=== PATIENT | female | born 1980 | race Two or more races ===

== ENCOUNTER 2024-12-03 20:10 | Inpatient (IN) | payer MEDICARE, MEDICAID ==
[~2024-12-03] VITALS: Ht 149.9 cm; Wt 97.0 kg
[2024-12-03 20:59] LABS: Basophils # (auto) 0.1 10 ^3/uL (0-0.2); Basophils % (auto) 1.1 % (0.0-2.0); Eosinophils # (auto) 0.1 10 ^3/uL (0-0.8); Eosinophils % (auto) 1.3 % (0.0-7.0); Hematocrit 40.9 % (36.0-46.0); Hemoglobin 13.8 g/dL (12.2-16.2); Lymphocytes # (auto) 1.8 10 ^3/uL (0.4-5.4); Lymphocytes % (auto) 27.8 % (10.0-50.0); Mean Corpuscular Hemoglobin 28.4 pg (28.0-32.0); Mean Corpuscular Hgb Conc. 33.7 g/dL (32.0-36.0); Mean Corpuscular Volume 84.2 fL (80.0-100.0); Monocytes # (auto) 0.4 10 ^3/uL (0-1.3); Monocytes % (auto) 6.8 % (0.0-12.0); Neutrophils # (auto) 4.1 10 ^3/uL (1.6-8.6); Nucleated Red Blood Cells % 0.1 %; Platelet Count (auto) 256 10^3/uL (140-450); Red Blood Cells 4.85 10^6/uL (4.0-5.20); Red Cell Distribution Width 16.2 % (11.8-14.3); White Blood Cell 6.5 10^3/uL (4.4-10.8)
[2024-12-03 21:03] LABS: Urine Bacteria FEW /hpf (None Seen); Urine Blood Negative /uL (Negative); Urine Clarity Turbid (Clear); Urine Color Yellow (Yellow); Urine Mucus MODERATE (None Seen); Urine Protein, UAD 1+ (Negative); Urine Specific Gravity 1.035 (1.001-1.035); Urine Squamous Epithelial Cell FEW /hpf (<5); Urine Urobilinogen 4 mg/dL (Negative); Urine WBC 27 /HPF (0-5)
[2024-12-03 21:05] LABS: Chloride 104 mmol/L (98-107); Potassium 3.9 mmol/L (3.5-5.1); Sodium 142 mmol/L (136-145)
[2024-12-03 21:06] LABS: Anion Gap 10 (5-15); Carbon Dioxide 28 mmol/L (20-31)
[2024-12-03 21:12] LABS: BUN/Creatinine Ratio 14.8 (10.0-20.0); Blood Urea Nitrogen 13 mg/dL (9-23); Glucose 118 mg/dL (74-106)
[2024-12-03 21:16] LABS: Lactic Acid w/Reflex 2.2 mmol/L (0.4-2.0)
--- NOTE | 2024-12-03 21:37 | ED.PDOC ---
General HPI Comments 44-year-old female here today with complaints of left lower quadrant ab dominal/pelvic pain that started this morning. Patient states the symptoms are intermittent can come in waves. Patient also endorses a small amount of vaginal bleeding which she says is not atypical for her as her periods has been intermittent. No dysuria or hematuria. States the pain goes from a 3/10 to a 10/10 very quickly and then subsides again. Endorses nausea without vomiting. No fevers. No rashes. No trauma. No history of the same. Chief Complaint: Pelvic Pain Time Seen by MD: 20:27 Primary Care Provider: DR ROLON Allergies: Coded Allergies: NO KNOWN ALLERGIES (Unverified , 12/03/24) Information Source: Patient Mode of Arrival: Ambulatory All Other Systems: Reviewed and Negative (ROS negative except as indicated by HPI) Physical Exam General Appearance: No Apparent Distress, Normal HEENT: Normal ENT Inspection, Pharynx Normal, TMs Normal Neck: Full Range of Motion, Non-Tender, Normal, Normal Inspection Respiratory: Chest Non-Tender, Lungs Clear, No Accessory Muscle Use, No Respiratory Distress, Normal Breath Sounds Cardiovascular: No Edema, No Murmur, No Gallop, Normal Peripheral Pulses, Regular Rate/Rhythm Breast Exam: Deferred Gastrointestinal: No Organomegaly, No Pulsatile Mass, Normal Bowel Sounds, Soft, Other (Mild tenderness to palpation in the left lower quadrant, no CVAT bilaterally, no rashes nor any signs of trauma) Genitalia: Deferred Pelvic: Deferred Rectal: Deferred Extremities: No calf tenderness, Normal capillary refill, Normal inspection, Normal range of motion, Non-tender, No pedal edema Musculoskeletal : Apperance: Normal Neurologic: Alert, gaggerman II-XII nml as Tested, No Motor Deficits, Normal Affect, Normal Mood, No Sensory Deficits Cerebellar Function: Normal Reflexes: Normal Skin: Dry, Normal Color, Warm Lymphatic: No Adenopathy Was a procedure done? Was a procedure done?: No Differential Diagnosis Kidney stone (Female): Appendicitis, Bowel obstruction, Ectopic , Ovarian torsion, Pancreatitis, Pyelonephritis, Urinary obstruction, Urolithiasis X-Ray, Labs, Meds, VS Vital Signs Date Time Temp Pulse Resp B/P (MAP) Pulse Ox O2 Delivery O2 Flow Rate FiO2 12/03/24 23:33 89 18 97 Room Air* 0 21 12/03/24 22:36 98.7 85 18 149/72 (97) 98 98.7 12/03/24 22:36 85 18 98 Room Air 12/03/24 20:37 98.1 83 20 127/90 (102) 96 98.1 Lab Test 12/03/24 22:42 12/03/24 20:57 12/03/24 20:49 Range/Units Lactic Acid Level 2.0 2.2 *H 0.4-2.0 mmol/L Urine Color Yellow Yellow Urine Clarity Turbid H Clear Urine pH 6.0 5.0-9.0 Urine Specific [place] 1.035 1.001-1.035 Urine Protein 1+ H Negative Urine Ketones Trace Negative Urine Blood Negative Negative /uL Urine Nitrite Negative Negative Urine Bilirubin Negative Negative Urine Urobilinogen 4 H Negative mg/dL Urine Leukocyte Esterase 3+ Negative /uL Urine RBC 12 0 - 4 /hpf Urine Microscopic WBC 27 H 0-5 /HPF Urine Squamous Epithelial Cells Few <5 /hpf Urine Calcium Oxalate Crystals Many None Seen Urine Bacteria Few H None Seen /hpf Urine Mucus Moderate None Seen Urine Glucose Normal Normal mg/dL Urine Test Negative Negative White Blood Count 6.5 4.4-10.8 10^3/uL Red Blood Count 4.85 4.0-5.20 10^6/uL Hemoglobin 13.8 12.2-16.2 g/dL Hematocrit 40.9 36.0-46.0 % Mean Corpuscular Volume 84.2 80.0-100.0 fL Mean Corpuscular Hemoglobin 28.4 28.0-32.0 pg Mean Corpuscular Hemoglobin Concent 33.7 32.0-36.0 g/dL Red Cell Distribution Width 16.2 H 11.8-14.3 % Platelet Count 256 140-450 10^3/uL Mean Platelet Volume 7.8 6.9-10.8 fL Neutrophils (%) (Auto) 63.0 37.0-80.0 % Lymphocytes (%) (Auto) 27.8 10.0-50.0 % Monocytes (%) (Auto) 6.8 0.0-12.0 % Eosinophils (%) (Auto) 1.3 0.0-7.0 % Basophils (%) (Auto) 1.1 0.0-2.0 % Neutrophils # (Auto) 4.1 1.6-8.6 10 ^3/uL Lymphocytes # (Auto) 1.8 0.4-5.4 10 ^3/uL Monocytes # (Auto) 0.4 0-1.3 10 ^3/uL Eosinophils # (Auto) 0.1 0-0.8 10 ^3/uL Basophils # (Auto) 0.1 0-0.2 10 ^3/uL Nucleated Red Blood Cells 0.1 % Sodium Level 142 136-145 mmol/L Potassium Level 3.9 3.5-5.1 mmol/L Chloride Level 104 98-107 mmol/L Carbon Dioxide Level 28 20-31 mmol/L Anion Gap 10 5-15 Blood Urea Nitrogen 13 9-23 mg/dL Creatinine 0.88 0.550-1.02 mg/dL Glomerular Filtration Rate Calc 83 >90 mL/min BUN/Creatinine Ratio 14.8 10.0-20.0 Serum Glucose 118 H 74-106 mg/dL Calcium Level 10.0 8.7-10.4 mg/dL Lipase 38 12-53 U/L Current Medications Medications (Trade) Dose Ordered Sig/Jose Route Start Time Stop Time Status Last Admin Sodium Chloride 1,000 ml @ 1,000 mls/hr Q1H ONCE IV 12/03/24 21:45 12/03/24 22:44 DC 12/03/24 22:36 Ketorolac Tromethamine (Toradol Injection) 15 mg ONCE ONCE IV 12/03/24 21:45 12/03/24 21:46 DC 12/03/24 22:41 X-Ray, Labs, Meds, VS Comment 44-year-old female here today with complaints of left lower pelvic/abdominal pain that is intermittent and comes on suddenly and then spontaneously improves. Vital signs stable, afebrile. Physical exam as above with evidence of mild left lower quadrant abdominal tenderness to palpation of otherwise unremarkable. No CVAT bilaterally. UA with evidence of UTI/possible early pyelonephritis. Blood cultures were obtained and patient was started on antibiotics after cultures were obtained. Possible TOA on ultrasound versus benign cyst. Patient is admitted to the medicine service with plans for gynecology consult for evaluation of possible ovarian torsion and further workup to find the source of the patient's symptoms. Images Reviewed?: Images reviewed and evaluated by me Time of 1ST Reevaluation: 00:04 Reevaluation 1ST: Improved (Asymptomatic at this time, in agreement with the plan for admission) Patient Education/Counseling: Diagnosis, Treatment, Prognosis Family Education/Counseling: Diagnosis, Treatment, Prognosis Departure 1 Departure Time of Disposition: 00:05 Impression: Primary Impression: Ovarian torsion Additional Impression: UTI (urinary tract infection) Disposition: 02 SHORT TERM HOSPITAL Admit to: Tele Condition: Stable Critical Care Note Critical Care Time?: Yes (35 min-critical care time only) Stability Stability form required: No Heart Score Heart Score: Heart Score Response (Comments) Value History N/A 0 EKG N/A 0 Age N/A 0 Risk Factors N/A 0 Troponin N/A 0 Total 0 LENA HERNANDEZ MD Dec 03, 2024 21:37
--- NOTE | 2024-12-03 21:43 | DVH ---
INDICATION: eval for left sided ovarian torsion TECHNIQUE: Multiple real-time grayscale transabdominal sonographic images along with color and duplex Doppler of the uterus and ovaries were obtained. COMPARISON: None FINDINGS: The uterus measures 7.4 x 3.6 x 5.4 cm. The endometrial stripe measures 0.2 cm. Right ovary measures 2 cm with normal Doppler color flow Left ovary measures 2.3 cm with normal Doppler color flow Slightly complex cyst in the left ovary measures up to 1.2 cm and contains internal echoes Multiple small subcentimeter nabothian cysts are noted IMPRESSION: No acute findings identified. No evidence of ovarian torsion. Complex left ovarian cyst measures up to 1.2 cm
[2024-12-03] MEDS: SODIUM CHLORIDE 0.9% 1,000 ML IV ONE (22:36)
[2024-12-03] MEDS: KETOROLAC TROMETH 30 MG/ML 1ML VIAL IV ONE (22:41)
[2024-12-03 23:33] VITALS: PULSE 89; RESP 18; O2SAT 97
--- NOTE | 2024-12-03 23:40 | DVHHPRES ---
History of Present Illness Resident Creating Document: ROBSON HANKS RESIDENT History of Present Illness Patient is a 44-year-old female with past medical history of epilepsy diagnosed in childhood and bipolar disorder, who comes in due to pelvic pain. According to the patient, pelvic pain started this morning and progressively worsened, she notes having similar pain 1 week ago. Pain is localized to the pelvic area, 7/10 in intensity with radiation to the left lower quadrant without any exacerbating or relieving factors. Pain is also accompanied with nausea and diarrhea. Patient notes she started having vaginal bleeding this morning and so far his used to pads. Last menstrual period was on 10/22/2024. Pelvic ultrasound showed complex left ovarian cyst measuring 1.2 cm. UA showed 3+ leukocyte esterase, 12 RBCs, 27 WBCs and few bacteria along with the epithelial cells. On review of systems patient is complaining of fatigue, chills, palpitation, nausea, urinary frequency and urinary hesitancy. Past Medical History epilepsy diagnosed in childhood and bipolar disorder Past Surgical History Abdominal excess skin removal, gastric bypass surgery, , breast red uction surgery, right hip fracture Past Social History Smoking: Denies Alcohol: Drinks 1 drink daily for the last 5 years Drugs: Denies Review of Systems Constitutional: Yes: Chills, Malaise; No: Fever, Sweats, Weakness, Other Eyes: No: Pain, Vision change, Conjunctivae inflammation, Eyelid inflammation, Other, Redness ENT: No: Ear pain, Ear discharge, Nose pain, Nose discharge, Nose congestion, Mouth pain, Mouth swelling, Throat pain, Throat swelling, Other Respiratory: No: Cough, Dry, Shortness of breath, SOB with excertion, Wheezing, Hemoptysis, Pleuritic Pain, Sputum, Wheezing, Other Cardiovascular: Palpitations; No: Chest Pain, Orthopnea, Paroxysmal Noc. Dyspnea, Edema, Lt Headedness, Other Gastrointestinal: Nausea, Diarrhea; No: Vomiting, Abdominal Pain, Constipation, Melena, Hematochezia, Other Genitourinary: No Dysuria; Frequency; No Incontinence, No Hematuria, No Retention, No Other Musculoskeletal: No: other, neck pain, shoulder pain, arm pain, back pain, hand pain, leg pain, foot pain Skin: No: Rash, Lesions, Jaundice, Bruising, Other Neurological: No: Weakness, Numbness, Incoordination, Change in speech, Confusion, Seizures, Other Allergies: Coded Allergies: NO KNOWN ALLERGIES (Unverified , 12/03/24) Exam Vital Signs Vital Signs Date Time Temp Pulse Resp B/P (MAP) Pulse Ox O2 Delivery O2 Flow Rate FiO2 12/03/24 22:36 98.7 85 18 149/72 (97) 98 98.7 12/03/24 22:36 Room Air General Appearance: Alert, Oriented X3, Cooperative, No acute distress HEENT: Atraumatic, PERRLA, Mucous membr. moist/pink, Other (Geographical tongue noted, heterochromia noted) Respiratory: Clear to auscultation, Normal air movement Cardiovascular: Regular rate, Normal S1, Normal S2 Abdominal: Normal bowel sounds, Other (Suprapubic tenderness, left abdominal tenderness to palpation) Extremities: No clubbing, No edema Skin: No significant lesion Neuro: Normal gait, Normal speech, Strength at 5/5 X4 ext, Sensation intact Psych/Mental Status: Mental status NL, Mood NL Labs/Xrays Labs Test 12/03/24 22:42 12/03/24 20:57 12/03/24 20:49 Range/Units Lactic Acid Level 2.0 0.4-2.0 mmol/L Urine Color Yellow Yellow Urine Clarity Turbid H Clear Urine pH 6.0 5.0-9.0 Urine Specific [place] 1.035 1.001-1.035 Urine Protein 1+ H Negative Urine Ketones Trace Negative Urine Blood Negative Negative /uL Urine Nitrite Negative Negative Urine Bilirubin Negative Negative Urine Urobilinogen 4 H Negative mg/dL Urine Leukocyte Esterase 3+ Negative /uL Urine RBC 12 0 - 4 /hpf Urine Microscopic WBC 27 H 0-5 /HPF Urine Squamous Epithelial Cells Few <5 /hpf Urine Calcium Oxalate Crystals Many None Seen Urine Bacteria Few H None Seen /hpf Urine Mucus Moderate None Seen Urine Glucose Normal Normal mg/dL Urine Test Negative Negative White Blood Count 6.5 4.4-10.8 10^3/uL Red Blood Count 4.85 4.0-5.20 10^6/uL Hemoglobin 13.8 12.2-16.2 g/dL Hematocrit 40.9 36.0-46.0 % Mean Corpuscular Volume 84.2 80.0-100.0 fL Mean Corpuscular Hemoglobin 28.4 28.0-32.0 pg Mean Corpuscular Hemoglobin Concent 33.7 32.0-36.0 g/dL Red Cell Distribution Width 16.2 H 11.8-14.3 % Platelet Count 256 140-450 10^3/uL Mean Platelet Volume 7.8 6.9-10.8 fL Neutrophils (%) (Auto) 63.0 37.0-80.0 % Lymphocytes (%) (Auto) 27.8 10.0-50.0 % Monocytes (%) (Auto) 6.8 0.0-12.0 % Eosinophils (%) (Auto) 1.3 0.0-7.0 % Basophils (%) (Auto) 1.1 0.0-2.0 % Neutrophils # (Auto) 4.1 1.6-8.6 10 ^3/uL Lymphocytes # (Auto) 1.8 0.4-5.4 10 ^3/uL Monocytes # (Auto) 0.4 0-1.3 10 ^3/uL Eosinophils # (Auto) 0.1 0-0.8 10 ^3/uL Basophils # (Auto) 0.1 0-0.2 10 ^3/uL Nucleated Red Blood Cells 0.1 % Sodium Level 142 136-145 mmol/L Potassium Level 3.9 3.5-5.1 mmol/L Chloride Level 104 98-107 mmol/L Carbon Dioxide Level 28 20-31 mmol/L Anion Gap 10 5-15 Blood Urea Nitrogen 13 9-23 mg/dL Creatinine 0.88 0.550-1.02 mg/dL Glomerular Filtration Rate Calc 83 >90 mL/min BUN/Creatinine Ratio 14.8 10.0-20.0 Serum Glucose 118 H 74-106 mg/dL Calcium Level 10.0 8.7-10.4 mg/dL Lipase 38 12-53 U/L Assessment/Plan Assessment/Plan Pelvic pain likely due to a complex left-sided ovarian cyst measuring 1.2 cm - pelvic ultrasound: No acute findings identified. No evidence of ovarian torsion. Complex left ovarian cyst measures up to 1.2 cm. - IV Toradol 15 mg once - acetaminophen 325 mg as needed for mild pain - consulted cell biology scientist Acute complicated UTI - IV ceftriaxone - IV NS 1 L bolus History of epilepsy History of bipolar disorder - resumed home medication levetiracetam 500 mg t.i.d. DVT prophylaxis: SCDs Goals of care: Full code, discussed for >16 minutes on 12/03/2024 Plan discussed with patient Plan discussed with Dr. Valencia Plan discussed with: Patient, Other (Partner at bedside. RN.) Date of Service: Dec 03, 2024 Billing Provider: MOSES VALENCIA MD Common Visit Codes: [id number] INP/OBS CARE (HIGH) ROBSON HANKS RESIDENT Dec 03, 2024 23:40 MOSES VALENCIA MD Dec 04, 2024 10:56
[2024-12-04] VITALS (8 sets, daily range): BP systolic 101–134; BP diastolic 60–89; PULSE 71–81; RESP 16–20; TEMP 97.8–98.7; O2SAT 98–100
[2024-12-04] MEDS ORDERED: cefTRIAXone 1GM/50ML D5W 50 ML IV ONE
[2024-12-04] MEDS: cefTRIAXone 1GM/50ML D5W 50 ML IV ONE (00:38)
[2024-12-04] MEDS: levETIRAcetam 500 MG TAB PO ONE (00:38)
[2024-12-04] MEDS: ACETAMINOPHEN 325 MG TAB PO PRN (00:46)
[2024-12-04] MEDS: MORPHINE SULFATE INJ 2 MG/ml SYRG IV ONE (00:51)
[2024-12-04] MEDS: metroNIDAZOLE 500MG/100ML 100 ML IV ONE (01:47)
[2024-12-04 01:53] LABS: Albumin 4.1 g/dL (3.2-4.8); Bilirubin, Direct 0.2 mg/dL (<0.3); Bilirubin, Total 0.5 mg/dL (0.2-1.0); Total Protein 6.6 g/dL (5.7-8.2)
[2024-12-04 05:20] LABS: Basophils # (auto) 0.1 10 ^3/uL (0-0.2); Basophils % (auto) 1.2 % (0.0-2.0); Eosinophils # (auto) 0.1 10 ^3/uL (0-0.8); Hematocrit 34.9 % (36.0-46.0); Hemoglobin 11.8 g/dL (12.2-16.2); Lymphocytes # (auto) 1.5 10 ^3/uL (0.4-5.4); Lymphocytes % (auto) 28.2 % (10.0-50.0); Mean Corpuscular Hemoglobin 28.5 pg (28.0-32.0); Mean Corpuscular Hgb Conc. 33.8 g/dL (32.0-36.0); Mean Corpuscular Volume 84.3 fL (80.0-100.0); Monocytes # (auto) 0.4 10 ^3/uL (0-1.3); Neutrophils # (auto) 3.2 10 ^3/uL (1.6-8.6); Neutrophils % (auto) 61.6 % (37.0-80.0); Nucleated Red Blood Cells % 0.1 %; Platelet Count (auto) 209 10^3/uL (140-450); Red Blood Cells 4.14 10^6/uL (4.0-5.20); Red Cell Distribution Width 16.2 % (11.8-14.3); White Blood Cell 5.1 10^3/uL (4.4-10.8)
[2024-12-04 05:37] LABS: INR 0.98 (0.9-1.15); Partial Thromboplastin Time 24.8 SEC (24.5-34.5); Prothrombin Time 10.4 sec (9.3-11.8)
[2024-12-04 05:44] LABS: Anion Gap 8 (5-15); Carbon Dioxide 26 mmol/L (20-31); Chloride 106 mmol/L (98-107); Sodium 140 mmol/L (136-145)
[2024-12-04 05:46] LABS: Potassium 3.4 mmol/L (3.5-5.1)
[2024-12-04 05:50] LABS: BUN/Creatinine Ratio 14.9 (10.0-20.0); Blood Urea Nitrogen 11 mg/dL (9-23); Glucose 100 mg/dL (74-106); Magnesium 1.9 mg/dL (1.6-2.6); Triglycerides 140 mg/dL (< 150)
[2024-12-04 05:51] LABS: LDL Cholesterol 79 mg/dL (< 100)
[2024-12-04 05:52] LABS: Cholesterol 131 mg/dL (< 200); Creatine Kinase IFCC 78 U/L (34-145); HDL Cholesterol 41 mg/dL (40-59); Phosphorus 3.1 mg/dL (2.4-5.1)
[2024-12-04] MEDS: levETIRAcetam 500 MG TAB PO SCH (06:28)
[2024-12-04] MEDS: PANTOPRAZOLE 40 MG TAB PO SCH (06:28)
[2024-12-04] MEDS ORDERED: cefTRIAXone 1GM/50ML D5W 50 ML IV SCH (09:00)
[2024-12-04] MEDS: BENZTROPINE MESY 0.5 MG TAB PO SCH (10:00)
[2024-12-04] MEDS: HALOPERIDOL 5 MG TAB PO SCH (10:00)
[2024-12-04] MEDS: POTASSIUM EFFERVESENT TAB 25 MEQ PO ONE (10:44)
--- NOTE | 2024-12-04 12:56 | DVH ---
ULTRASOUND AORTIC CLINICAL INDICATION: Evaluated for abdominal aortic aneurysm. Smoking history TECHNIQUE: Multiple sonographic images of the abdominal aorta were obtained. FINDINGS: The aorta measures 2, 1 and 1 cm in the AP diameter, at the superior, mid and inferior portions, respectively. There is no evidence for atherosclerotic disease. There is no periaortic fl uid. IMPRESSION: 1. no evidence for abdominal aortic aneurysm.>]
--- NOTE | 2024-12-04 16:20 | DVHPNRES ---
Progress Note Date Seen: Dec 04, 2024 Resident Creating Document: BAILEY DÍAZ LILLIAN Has the PT tested + for MRSA If YES, has PT been informed?: No Medical Necessity Reason Pt with a Central, PICC or Fol: No Subjective Review of Systems This is a 44-year-old female with past medical history of UTI, epilepsy and bipolar disorder since childhood came to the hospital due to abdominal pain since 2 days. Pain is localized at lower abdomen, radiating to the back, intermittent, burning, 7/10 which worsens with bowel movement. She also reports of nausea, diarrhea (since 3 days), frequency, urgency, and dysuria. She denies fever, chest pain, shortness of breaths, or any recent sick contact. PMHx: UTI, epilepsy and bipolar disorder since childhood PSHx: Abdominal excess skin removal, gastric bypass surgery, , breast reduction surgery, right hip fracture Family history: Noncontributory Social history: Denies smoking, drink occasionally, denies any other drug use. Home medication: Haloperidol 5 mg b.i.d. and benztropine b.i.d., Keppra Allergic history: No known allergy Gynecological history: Patient's last period was 4 days back, per patient duration and amount of bleeding is normal Patient seen and examined at the bedside. Patient is still complaining of abdominal pain. Objective vital signs Vital Sign Date Time Temp Pulse Resp B/P (MAP) Pulse Ox O2 Delivery O2 Flow Rate FiO2 12/04/24 11:31 98.5 71 18 119/79 (92) 99 98.5 12/04/24 00:14 Room Air* 0 21 Total Intake and Output 12/03/24 12/03/24 12/04/24 15:00 23:00 07:00 Intake Total 320 ml Balance 320 ml medications Current Medications Medications Dose Ordered Sig/Jose Route Start Time Stop Time Status Last Admin Dose Admin Acetaminophen 325 mg Q4HP PRN PO 12/03/24 23:30 12/04/24 00:46 325 MG Levetiracetam 500 mg TID PO 12/04/24 06:00 12/04/24 16:02 500 MG Ceftriaxone Sodium 50 ml @ 100 mls/hr Q24H IV 12/05/24 00:00 Pantoprazole Sodium 40 mg DAILY@0600 PO 12/04/24 06:00 12/04/24 06:28 40 MG Haloperidol 5 mg DAILY PO 12/04/24 10:00 Benztropine Mesylate 1 mg DAILY PO 12/04/24 10:00 Examination General Appearance: Alert, Oriented X3, Cooperative, No acute distress HEENT: Atraumatic, PERRLA, EOMI, Mucous membrane moist/pink Respiratory: Clear to auscultation, Normal air movement Cardiovascular: Regular rate, Normal S1, Normal S2, No murmurs, no chest wall tenderness Abdominal: Mild abdominal tenderness Extremities: No clubbing, No cyanosis, No edema, Normal pulses, No tenderness/swelling Skin: No rashes, No breakdown, No significant lesion Neuro: Normal gait, Normal speech, Strength at 5/5 X4 ext, Normal tone, Sensation intact, Cranial nerves 3-12 NL, Reflexes 2+ Psych/Mental Status: Mental status NL, Mood NL laboratory and microbiology Laboratory Tests 12/04/24 04:48 Test 12/04/24 04:48 Range/Units Serum Glucose 100 74-106 mg/dL Labs and/or images reviewed: Labs reviewed by me, Image(s) reviewed by me Problem List/Assessment/Plan Problem List/Assessment/Plan Complicated UTI Lactic acidosis ? Gastroenteritis UA shows UTI picture Urine culture Empiric antibiotic, Rocephin IV fluid Pain management Ovarian cyst Ultrasound shows, complex left-sided ovarian cyst 1.2 cm Gyne consulted History of bipolar disorder History of epilepsy Continue home meds Hypokalemia, repleted Precipitous hematocrit drop, possibly dilutional DIET: Regular diet DVT PROPHYLAXIS: Lovenox GI PROPHYLAXIS:: Protonix CODE STATUS: Goal of care discussed for more than 18 minutes, full code DISPOSITION: Med/surge Patient's status and plan discussed with the patient. Case discussed with Dr. Saunders. Plan discussed with: Patient, Other (RN) My Orders My Orders Orders - BAILEY DÍAZ Procedure Category Date Status Time * Travel Med Surg Rn Consultation CONS 12/04/24 Verified 08:44 Stool Occult Blood LAB 12/04/24 Logged 12:01 Aaa Screening US 12/04/24 Resulted 12:03 Date of Service: Dec 04, 2024 Billing Provider: JULIETTE RAMIREZ MD Common Visit Codes: [id number] INP/OBS CARE(HIGH) BAILEY DÍAZ RESDIENT Dec 04, 2024 16:20 JULIETTE RAMIREZ MD Dec 06, 2024 00:59
[2024-12-04] MEDS: cefTRIAXone 1GM/50ML D5W 50 ML IV SCH (23:25)
[2024-12-05 01:00] VITALS: BP 113/83; PULSE 77; RESP 15; TEMP 98.1; O2SAT 94
[2024-12-05 05:00] VITALS: BP 124/80; PULSE 77; RESP 16; TEMP 98.4; O2SAT 97
[2024-12-05 06:33] LABS: Basophils # (auto) 0 10 ^3/uL (0-0.2); Basophils % (auto) 0.9 % (0.0-2.0); Eosinophils # (auto) 0.1 10 ^3/uL (0-0.8); Eosinophils % (auto) 2.4 % (0.0-7.0); Hematocrit 38.2 % (36.0-46.0); Hemoglobin 12.5 g/dL (12.2-16.2); Lymphocytes # (auto) 1.3 10 ^3/uL (0.4-5.4); Lymphocytes % (auto) 28.3 % (10.0-50.0); Mean Corpuscular Hgb Conc. 32.6 g/dL (32.0-36.0); Mean Corpuscular Volume 85.8 fL (80.0-100.0); Monocytes # (auto) 0.3 10 ^3/uL (0-1.3); Monocytes % (auto) 7.4 % (0.0-12.0); Neutrophils # (auto) 2.9 10 ^3/uL (1.6-8.6); Nucleated Red Blood Cells % 0.2 %; Platelet Count (auto) 207 10^3/uL (140-450); Red Blood Cells 4.45 10^6/uL (4.0-5.20); Red Cell Distribution Width 16.4 % (11.8-14.3); White Blood Cell 4.7 10^3/uL (4.4-10.8)
[2024-12-05 06:55] LABS: Alanine Aminotransferase 30 U/L (7-40); Albumin 4.1 g/dL (3.2-4.8); Alkaline Phosphatase 111 U/L (46-116); Anion Gap 8 (5-15); Aspartate Aminotransferase 22 U/L (13-40); BUN/Creatinine Ratio 11.1 (10.0-20.0); Calcium 9.4 mg/dL (8.7-10.4); Carbon Dioxide 26 mmol/L (20-31); Chloride 105 mmol/L (98-107); Glucose 100 mg/dL (74-106); Potassium 3.8 mmol/L (3.5-5.1); Sodium 139 mmol/L (136-145); Total Protein 6.6 g/dL (5.7-8.2)
[2024-12-05 06:56] LABS: Bilirubin, Total 0.4 mg/dL (0.2-1.0)
[2024-12-05 07:05] LABS: Blood Urea Nitrogen 8 mg/dL (9-23)
[2024-12-05 08:00] VITALS: PULSE 81; RESP 18; O2SAT 98
[2024-12-05 08:18] VITALS: BP 135/80; PULSE 81; RESP 18; TEMP 98.4; O2SAT 98
--- NOTE | 2024-12-05 12:13 | DVHINCON2 ---
Date of service: Dec 05, 2024 Referring Physician hospitalist Reason for Consultation pelvic pain,aub History of Present Illness pt is admitted for lower aBD PAIN,SHE USUALLY HAS NL MENSES. HER LAST PAP WAS IN 2023 AND HER PELVIC US SHOWS 7 WKS SIZE UETRUS WITH 1.9 CM CYST Past Medical History SEIZURES ,BIPOLAR Past Surgical History TUBAL,GASTRIC BYPASS,BREAST REDUCTION,,R HIP FX,PENNECULECTOMY Family History NA Social History 2CS AND ONE Patient Family History: Diabetes mellitus G8 MOTHER G8 FATHER Hypertension G8 MOTHER G8 FATHER Allergies: Coded Allergies: NO KNOWN ALLERGIES (Unverified , 12/03/24) Current Medications Current Medications Medications (Trade) Dose Ordered Sig/Jose Route PRN Reason Start Time Stop Time Status Last Admin Ceftriaxone Sodium 50 ml @ 100 mls/hr Q24H IV 12/05/24 00:00 12/04/24 23:25 Review of Systems Constitutional: no fever, chill, weight loss HEENT: no eye pain, no hearing loss, no oral lesion, no scleral icterus Heart: no chest pain, no chest pressure Lung: no cough, no dyspnea with exertion Abdomen: see HPI : no pain with urination, normal appearing urine Musculoskeletal: no joint pain, no muscle pain Neurological: no seizure, no loss of sensation, no weakness in extremities Pysch: no depression, no anxiety Derm: no rash, no jaundice Vital Signs Vital Signs Date Time Temp Pulse Resp B/P (MAP) Pulse Ox O2 Delivery O2 Flow Rate FiO2 12/05/24 08:18 98.4 81 18 135/80 (98) 98 98.4 12/05/24 08:00 Room Air* 0 21 Physical Exam SKIN: [NL ] HEENT: [NL ] NECK: [NL] CARDIAC: [RRR] PULMONARY: [CTA] ABDOMEN: SOFT,NT PELVIC- EXT GENITALIA WNL,VAG NL,CX NL ,UTERUS 7WKS SIZE,ADENXA NT EXT-NO CCE Labs/Diagnostic Data Labs Test 12/05/24 06:06 12/04/24 10:06 12/04/24 04:48 12/04/24 00:30 Range/Units White Blood Count 4.7 4.4-10.8 10^3/uL Red Blood Count 4.45 4.0-5.20 10^6/uL Hemoglobin 12.5 12.2-16.2 g/dL Hematocrit 38.2 36.0-46.0 % Mean Corpuscular Volume 85.8 80.0-100.0 fL Mean Corpuscular Hemoglobin 28.0 28.0-32.0 pg Mean Corpuscular Hemoglobin Concent 32.6 32.0-36.0 g/dL Red Cell Distribution Width 16.4 H 11.8-14.3 % Platelet Count 207 140-450 10^3/uL Mean Platelet Volume 8.1 6.9-10.8 fL Neutrophils (%) (Auto) 61.0 37.0-80.0 % Lymphocytes (%) (Auto) 28.3 10.0-50.0 % Monocytes (%) (Auto) 7.4 0.0-12.0 % Eosinophils (%) (Auto) 2.4 0.0-7.0 % Basophils (%) (Auto) 0.9 0.0-2.0 % Neutrophils # (Auto) 2.9 1.6-8.6 10 ^3/uL Lymphocytes # (Auto) 1.3 0.4-5.4 10 ^3/uL Monocytes # (Auto) 0.3 0-1.3 10 ^3/uL Eosinophils # (Auto) 0.1 0-0.8 10 ^3/uL Basophils # (Auto) 0 0-0.2 10 ^3/uL Nucleated Red Blood Cells 0.2 % Sodium Level 139 136-145 mmol/L Potassium Level 3.8 3.5-5.1 mmol/L Chloride Level 105 98-107 mmol/L Carbon Dioxide Level 26 20-31 mmol/L Anion Gap 8 5-15 Blood Urea Nitrogen 8 L 9-23 mg/dL Creatinine 0.72 0.550-1.02 mg/dL Glomerular Filtration Rate Calc 105 >90 mL/min BUN/Creatinine Ratio 11.1 10.0-20.0 Serum Glucose 100 74-106 mg/dL Calcium Level 9.4 8.7-10.4 mg/dL Total Bilirubin 0.4 0.2-1.0 mg/dL Aspartate Amino Transferase (AST) 22 13-40 U/L Alanine Aminotransferase (ALT) 30 7-40 U/L Alkaline Phosphatase 111 46-116 U/L Total Protein 6.6 5.7-8.2 g/dL Albumin 4.1 3.2-4.8 g/dL Prothrombin Time 10.4 9.3-11.8 sec Prothrombin Time INR 0.98 0.9-1.15 Activated Partial Thromboplast Time 24.8 24.5-34.5 SEC Hemoglobin A1c 5.2 <5.7 % A1C Phosphorus Level 3.1 2.4-5.1 mg/dL Magnesium Level 1.9 1.6-2.6 mg/dL Creatine Kinase 78 34-145 U/L Triglycerides Level 140 < 150 mg/dL Cholesterol Level 131 < 200 mg/dL LDL Cholesterol 79 < 100 mg/dL HDL Cholesterol 41 40-59 mg/dL CA 125 Antigen 9.4 0.0-38.1 U/mL Vitamin B12 Level 315 211-911 pg/mL Vitamin D 25-Hydroxy 41.1 30.0-100 ng/mL Thyroid Stimulating Hormone (TSH) 1.68 0.55-4.78 uIU/mL Beta HCG, Quantitative 2.2 1.5-4.2 mIU/mL Plasma/Serum Blood Alcohol < 3.0 <10 mg/dL HIV (1&2) Antibody Negative Negative Direct Bilirubin 0.2 <0.3 mg/dL Test 12/03/24 22:42 12/03/24 20:57 12/03/24 20:49 Range/Units Lactic Acid Level 2.0 0.4-2.0 mmol/L Urine Color Yellow Yellow Urine Clarity Turbid H Clear Urine pH 6.0 5.0-9.0 Urine Specific [place] 1.035 1.001-1.035 Urine Protein 1+ H Negative Urine Ketones Trace Negative Urine Blood Negative Negative /uL Urine Nitrite Negative Negative Urine Bilirubin Negative Negative Urine Urobilinogen 4 H Negative mg/dL Urine Leukocyte Esterase 3+ Negative /uL Urine RBC 12 0 - 4 /hpf Urine Microscopic WBC 27 H 0-5 /HPF Urine Squamous Epithelial Cells Few <5 /hpf Urine Calcium Oxalate Crystals Many None Seen Urine Bacteria Few H None Seen /hpf Urine Mucus Moderate None Seen Urine Glucose Normal Normal mg/dL Urine Test Negative Negative Lipase 38 12-53 U/L Microbiology Date/Time Source Procedure Growth Status 12/04/24 00:46 Blood Blood Culture - Preliminary NO GROWTH AFTER 24 HOURS OF INCUBATION. Resulted Primary Diagnosis PELVIC PAIN SEIZURE DISORDER 2' Diagnosis/Comorbidities AUB X ONE Plan FU OUT PT ,OVARAIN CYST IS NL SIZE AND AUB NEEDS TO BE MONITOR FOR FURTHER WKUP,RECOMMEND FU OUTPT.WILL SIGN OFF THANK YOU Plan discussed with: Patient Visit Coding OBGYN Date of Service: Dec 05, 2024 Billing Provider: MARIO MONROE DO CONTRACTS INTERN Common Visit Codes: [id number]/[id number] SAME DATE (HIGH) CONTRACTS INTERN Consultation Codes: [id number] CONSULT <80MIN MARIO MONROE DO Dec 05, 2024 12:13
[2024-12-05 12:28] VITALS: BP 129/78; PULSE 77; RESP 18; TEMP 97.6; O2SAT 99
[2024-12-05] MEDS ORDERED: CIPR-173 PO (14:51)
--- NOTE | 2024-12-05 15:47 | DVHDSRES ---
Discharge Summary Date of Admission Resident Creating Document: BAILEY DÍAZ RESDIENT Dec 03, 2024 at 23:28 Date of Discharge: Dec 05, 2024 Admitting Diagnosis Abdominal pain Labs/Diagnostic Data: Laboratory Results Test 12/05/24 06:06 12/04/24 10:06 12/04/24 04:48 12/04/24 00:30 White Blood Count 4.7 10^3/uL (4.4-10.8) Red Blood Count 4.45 10^6/uL (4.0-5.20) Hemoglobin 12.5 g/dL (12.2-16.2) Hematocrit 38.2 % (36.0-46.0) Mean Corpuscular Volume 85.8 fL (80.0-100.0) Mean Corpuscular Hemoglobin 28.0 pg (28.0-32.0) Mean Corpuscular Hemoglobin Concent 32.6 g/dL (32.0-36.0) Red Cell Distribution Width 16.4 % (11.8-14.3) Platelet Count 207 10^3/uL (140-450) Mean Platelet Volume 8.1 fL (6.9-10.8) Neutrophils (%) (Auto) 61.0 % (37.0-80.0) Lymphocytes (%) (Auto) 28.3 % (10.0-50.0) Monocytes (%) (Auto) 7.4 % (0.0-12.0) Eosinophils (%) (Auto) 2.4 % (0.0-7.0) Basophils (%) (Auto) 0.9 % (0.0-2.0) Neutrophils # (Auto) 2.9 10 ^3/uL (1.6-8.6) Lymphocytes # (Auto) 1.3 10 ^3/uL (0.4-5.4) Monocytes # (Auto) 0.3 10 ^3/uL (0-1.3) Eosinophils # (Auto) 0.1 10 ^3/uL (0-0.8) Basophils # (Auto) 0 10 ^3/uL (0-0.2) Nucleated Red Blood Cells 0.2 % Sodium Level 139 mmol/L (136-145) Potassium Level 3.8 mmol/L (3.5-5.1) Chloride Level 105 mmol/L (98-107) Carbon Dioxide Level 26 mmol/L (20-31) Anion Gap 8 (5-15) Blood Urea Nitrogen 8 mg/dL (9-23) Creatinine 0.72 mg/dL (0.550-1.02) Glomerular Filtration Rate Calc 105 mL/min (>90) BUN/Creatinine Ratio 11.1 (10.0-20.0) Serum Glucose 100 mg/dL (74-106) Calcium Level 9.4 mg/dL (8.7-10.4) Total Bilirubin 0.4 mg/dL (0.2-1.0) Aspartate Amino Transferase (AST) 22 U/L (13-40) Alanine Aminotransferase (ALT) 30 U/L (7-40) Alkaline Phosphatase 111 U/L (46-116) Total Protein 6.6 g/dL (5.7-8.2) Albumin 4.1 g/dL (3.2-4.8) Prothrombin Time 10.4 sec (9.3-11.8) Prothrombin Time INR 0.98 (0.9-1.15) Activated Partial Thromboplast Time 24.8 SEC (24.5-34.5) Hemoglobin A1c 5.2 % A1C (<5.7) Phosphorus Level 3.1 mg/dL (2.4-5.1) Magnesium Level 1.9 mg/dL (1.6-2.6) Creatine Kinase 78 U/L (34-145) Triglycerides Level 140 mg/dL (< 150) Cholesterol Level 131 mg/dL (< 200) LDL Cholesterol 79 mg/dL (< 100) HDL Cholesterol 41 mg/dL (40-59) CA 125 Antigen 9.4 U/mL (0.0-38.1) Vitamin B12 Level 315 pg/mL (211-911) Vitamin D 25-Hydroxy 41.1 ng/mL (30.0-100) Thyroid Stimulating Hormone (TSH) 1.68 uIU/mL (0.55-4.78) Beta HCG, Quantitative 2.2 mIU/mL (1.5-4.2) Plasma/Serum Blood Alcohol < 3.0 mg/dL (<10) HIV (1&2) Antibody Negative (Negative) Direct Bilirubin 0.2 mg/dL (<0.3) Test 12/03/24 22:42 12/03/24 20:57 12/03/24 20:49 Lactic Acid Level 2.0 mmol/L (0.4-2.0) Urine Color Yellow (Yellow) Urine Clarity Turbid (Clear) Urine pH 6.0 (5.0-9.0) Urine Specific Donnelly 1.035 (1.001-1.035) Urine Protein 1+ (Negative) Urine Ketones Trace (Negative) Urine Blood Negative /uL (Negative) Urine Nitrite Negative (Negative) Urine Bilirubin Negative (Negative) Urine Urobilinogen 4 mg/dL (Negative) Urine Leukocyte Esterase 3+ /uL (Negative) Urine RBC 12 /hpf (0 - 4) Urine Microscopic WBC 27 /HPF (0-5) Urine Squamous Epithelial Cells Few /hpf (<5) Urine Calcium Oxalate Crystals Many (None Seen) Urine Bacteria Few /hpf (None Seen) Urine Mucus Moderate (None Seen) Urine Glucose Normal mg/dL (Normal) Urine Test Negative (Negative) Lipase 38 U/L (12-53) Other Laboratory Tests 12/05/24 06:06 Brief Hx & Hospital Course: This is a 44-year-old female with past medical history of UTI, epilepsy and bipolar disorder since childhood came to the hospital due to abdominal pain since 2 days. Pain is localized at lower abdomen, radiating to the back, intermittent, burning, 7/10 which worsens with bowel movement. She also reports of nausea, diarrhea (since 3 days), frequency, urgency, and dysuria. She denies fever, chest pain, shortness of breaths, or any recent sick contact. PMHx: UTI, epilepsy and bipolar disorder since childhood PSHx: Abdominal excess skin removal, gastric bypass surgery, , breast reduction surgery, right hip fracture Family history: Noncontributory Social history: Denies smoking, drink occasionally, denies any other drug use. Home medication: Haloperidol 5 mg b.i.d. and benztropine b.i.d., Keppra Allergic history: No known allergy Gynecological history: Patient's last period was 4 days back, per patient duration and amount of bleeding is normal Hospital course: Patient was admitted at the line of UTI and possible gastroenteritis. The patient was given empiric antibiotic of Rocephin, IV fluid and pain management. Ultrasound shows complex left-sided ovarian cyst 1.2 cm chronic gynecology consulted recommended outpatient follow up. Electrolyte imbalance including hypokalemia was repleted. Home medication were continued. Urine and blood culture of the 24 hours showed no growth. On 12/06/2023, the patient was feeling better since admission. Discharge plan discussed with the patient and the patient discharged home. Discharge plan: Cipro 500 mg b.i.d. for 5 days Follow up with the PCP within 1 week of the discharge Continue home meds Operations or Procedures [place] [id number] Ph: [phone] DIAGNOSTIC IMAGING Diagnostic Imaging Report : [id number] Signed PATIENT: JAMES YEUNG ACCT: [id number] UNIT: [id number] : 1980 LOC: ER ROOM / BED: / AGE / SEX: 44 / F ADM STATUS: REG ER SERVICE 30 ORDERING PHYSICIAN: LENA HERNANDEZ MD PROCEDURE(s): PELUS - PELVIC REASON: eval for left sided ovarian torsion ORDER NUMBER(s): [id number], ACCESSION NUMBER(s): [id number] INDICATION: eval for left sided ovarian torsion TECHNIQUE: Multiple real-time grayscale transabdominal sonographic images along with color and duplex Doppler of the uterus and ovaries were obtained. COMPARISON: None FINDINGS: The uterus measures 7.4 x 3.6 x 5.4 cm. The endometrial stripe measures 0.2 cm. Right ovary measures 2 cm with normal Doppler color flow Left ovary measures 2.3 cm with normal Doppler color flow Slightly complex cyst in the left ovary measures up to 1.2 cm and contains internal echoes Multiple small subcentimeter nabothian cysts are noted IMPRESSION: No acute findings identified. No evidence of ovarian torsion. Complex left ovarian cyst measures up to 1.2 cm ATED BY: PIOTR DUARTE MD DICTATED DATE/TIME: 12/03/242139 SIGNED BY: PIOTR DUARTE MD SIGNED DATE/TIME: 12/03/242139 CC: Condition at Discharge: Stable Final Diagnosis/Problems List Abdominal pain, likely due to UTI/gastroenteritis Complicated UTI Lactic acidosis ? Gastroenteritis ? Pelvic inflammatory disease Ovarian cyst History of bipolar disorder History of epilepsy Hypokalemia Precipitous hematocrit drop, possibly dilutional Discharge Disposition: Home Discharge Instruct/Medications Diet: Regular Activity: No Restrictions, As Tolerated Follow Up/Referral: Follow up with the PCP within 1 week of the discharge. Follow up with the gynecology on outpatient basis for the ovarian cyst Medications: Cipro 500 mg b.i.d. for 5 days Continue home meds Discharge Statement: "Patient was advised to return to the ER or call 911 if any headaches, dizziness, shortness of breath, chest pain, abdominal pain, bleeding, fevers, or worsening of medical condition. Patient was counseled about treatment plan, medications, possible side effects, patientverbalized understanding. All questions were answered to the best of my ability. This discharge took greater then 30 minutes in planning, reviewing documentation, counseling the patient, and discussing with other team members." ASSESSMENT ASSESSMENT Assessment URINARY TRACT INFECTION Date of Service: Dec 05, 2024 Billing Provider: JLUIETTE RAMIREZ MD Common Visit Codes: 47281-PPY/OBS DISCH DAY >30min BAILEY DÍAZ RESDIENT Dec 05, 2024 15:47 JULIETTE RAMIREZ MD Dec 06, 2024 01:10
[2024-12-05 16:35] VITALS: BP 114/69; PULSE 64; RESP 20; TEMP 98.6; O2SAT 96
== END 2024-12-05 18:35 | disposition home or self-care (01) | DRG 690 ==
LOC: ER 20:10 → OVERFLOW 23:28 → EAST 12-04 17:21
PROVIDERS: ADMIT Student in an Organized Health Care Education/Training Program; ATTEND Student in an Organized Health Care Education/Training Program
DX: N39.0 Urinary tract infection, site not specified (principal); A09 Infectious gastroenteritis and colitis, unspecified; E87.20 Acidosis, unspecified; R71.0 Precipitous drop in hematocrit; E87.6 Hypokalemia; E11.9 Type 2 diabetes mellitus without complications; F31.9 Bipolar disorder, unspecified; I10 Essential (primary) hypertension; Z98.84 Bariatric surgery status; Z98.891 History of uterine scar from previous surgery; N73.9 Female pelvic inflammatory disease, unspecified
CPT/HCPCS: 36415; 76830; 76856; 80048; 80053; 80061; 80076; 80320; 81001; 81025; 82306; 82550; 82607; 83036; 83605; 83690; 83735; 84100; 84443; 84702; 85025; 85610; 85730; 86304; 86703; 87040; 87086; 96361; 96374; 99291; G0378; J1885; J3490